=== PATIENT | female | born 1990 | race Hispanic/Latino ===

== ENCOUNTER → 2020-12-23 | Outpatient (REF) | payer SELFPAY | LOC: M WUC 19:44 | PROVIDERS: ATTEND Physician Assistant | DX: R30.0 Dysuria (principal) ==

== ENCOUNTER 2021-06-01 19:53 | Emergency (ER) | payer OTHER, SELFPAY ==
[~2021-06-01] VITALS: Ht 160 cm; Wt 76.2 kg
[2021-06-01] MEDS ORDERED: PREN1CHW6 PO (20:19)
[2021-06-01 23:09] LABS: BASO # 0.1 10^3/uL (0.0-0.2); BASO % 0.8 % (0.0-1.0); EOS # 0.1 10^3/uL (0.0-0.5); EOS % 1.4 % (0.0-3.0); HEMATOCRIT 37.7 % (36.0-47.0); HEMOGLOBIN 13.1 g/dl (12.0-15.5); LYMPH # 2.2 10^3/uL (1.5-5.0); LYMPH % 22.1 % (24.0-44.0); MEAN CORPUSCULAR HEMOGLOBIN 30.2 pg (27.0-33.0); MEAN CORPUSCULAR HGB CONC 34.7 g/dl (32.0-36.5); MEAN CORPUSCULAR VOLUME 86.9 fl (80.0-96.0); MONO # 0.6 10^3/uL (0.0-0.8); MONO % 6.1 % (2.0-8.0); NEUTROPHILS # 6.9 10^3/uL (1.5-8.5); NEUTROPHILS % 69.3 % (36.0-66.0); PLATELET COUNT, AUTOMATED 263 10^3/uL (150-450); RED BLOOD COUNT 4.34 10^6/uL (4.00-5.40)
[2021-06-01 23:40] LABS: APPEARANCE, URINE CLEAR (CLEAR); BACTERIA, URINE AUTO NEGATIVE (NEGATIVE); BILIRUBIN, URINE AUTO NEGATIVE (NEGATIVE); BLOOD, URINE BLOOD NEGATIVE (NEGATIVE); COLOR, URINE YELLOW (YELLOW); GLUCOSE, URINE (UA) AUTO NEGATIVE (NEGATIVE); KETONE, URINE AUTO NEGATIVE (NEGATIVE); LEUKOCYTE ESTERASE, URINE AUTO NEGATIVE (NEGATIVE); MUCUS, URINE SMALL (NEGATIVE); NITRITE, URINE AUTO NEGATIVE (NEGATIVE); PROTEIN, URINE AUTO NEGATIVE (NEGATIVE); RBC, URINE AUTO 0 /HPF (0-3); SPECIFIC GRAVITY URINE AUTO 1.012 (1.002-1.035); SQUAMOUS EPITHELIAL CELL UR AU 1 /HPF (0-6); UROBILINOGEN, URINE AUTO 0.2 mg/dL (0.0-2.0); WBC, URINE AUTO 1 /HPF (0-3)
[2021-06-02 01:03] LABS: GC DNA AMPLIFICATION NEGATIVE (NEGATIVE)
[2021-06-02 01:43] VITALS: BP 141/88
== END 2021-06-02 02:08 | disposition home or self-care (01) ==
LOC: M ED 19:53
DX: O03.4 Incomplete spontaneous abortion without complication (principal); O02.0 Blighted ovum and nonhydatidiform mole; O34.81 Maternal care for other abnormalities of pelvic organs, first trimester; N83.202 Unspecified ovarian cyst, left side; O30.001 Twin pregnancy, unspecified number of placenta and unspecified number of amniotic sacs, first trimester; Z3A.01 Less than 8 weeks gestation of pregnancy

== ENCOUNTER 2021-06-04 12:03 | Day surgery (SDC) | payer OTHER ==
[~2021-06-04] VITALS: Ht 160 cm; Wt 74.8 kg
[~2021-06-04 12:03] MED LIST: LIDOCAINE 1% MDV 20ML VIAL SQ PRN; LIDOCAINE 2% 100MG/5ML SDV (FOR ANES.) As Ordered ONE; LR 1,000 ML IV ONE; MIDAZOLAM INJ 2MG/2ML VIAL (J2250 PER 1MG) As Ordered ONE; ONDANSETRON 4MG/2ML VIAL As Ordered ONE; PREN1CHW6 PO; dexameTHASONE 4 MG/ML 1ML VIAL (J1100 PER 1MG) As Ordered ONE; fentaNYL 100 MCG/2 ML INJECTION As Ordered ONE; propofoL 200 MG/20 ML VIAL As Ordered ONE
[2021-06-04 12:30] LABS: HEMATOCRIT 40.2 % (36.0-47.0); HEMOGLOBIN 13.8 g/dl (12.0-15.5); MEAN CORPUSCULAR HEMOGLOBIN 29.7 pg (27.0-33.0); MEAN CORPUSCULAR HGB CONC 34.3 g/dl (32.0-36.5); MEAN CORPUSCULAR VOLUME 86.5 fl (80.0-96.0); PLATELET COUNT, AUTOMATED 273 10^3/uL (150-450); RED BLOOD COUNT 4.65 10^6/uL (4.00-5.40); WHITE BLOOD COUNT 10.6 10^3/uL (4.0-10.0)
[2021-06-04] MEDS ORDERED: ACETAMINOPHEN 1000MG 100ML IV BTL (OFIRMEV) (J0131 PER 10MG) As Ordered ONE (13:41)
[2021-06-04] MEDS ORDERED: LR 1,000 ML IV SCH ×2 (14:30)
[2021-06-04] MEDS ORDERED: ONDANSETRON 4MG/2ML VIAL IV PRN (14:30)
[2021-06-04] MEDS ORDERED: oxyCODONE 5MG TAB PO PRN (14:30)
[2021-06-04] MEDS ORDERED: fentaNYL 100 MCG/2 ML INJECTION IV PRN (14:30)
[2021-06-04] MEDS ORDERED: MEPERIDINE INJ 25 MG/ML VIAL (J2175) IV PRN (14:30)
[2021-06-04] MEDS ORDERED: ACETAMINOPHEN 500 MG TAB PO ONE ×2 (15:00→20:00)
[2021-06-04] MEDS ORDERED: DOXYCYCLINE HYCLATE 100MG TABLET PO ONE (15:00)
[2021-06-04] MEDS ORDERED: KETOROLAC 30 MG/ML 1ML VIAL IV ONE (15:15)
[2021-06-04 15:45] VITALS: BP 141/92
== END 2021-06-04 15:53 | disposition home or self-care (01) ==
LOC: M SDC 12:03
PROVIDERS: ATTEND Specialist
DX: O02.1 Missed abortion (principal); Z87.891 Personal history of nicotine dependence
CPT/HCPCS: 36415; 59820; 85027; 88305; J0131; J1100; J1885; J2250; J2405; J3010

== ENCOUNTER → 2021-06-24 | Outpatient (REF) | payer OTHER ==
[~2021-06-24] MED LIST changes: -LIDOCAINE 1% MDV 20ML VIAL SQ PRN; -LIDOCAINE 2% 100MG/5ML SDV (FOR ANES.) As Ordered ONE; -LR 1,000 ML IV ONE; -MIDAZOLAM INJ 2MG/2ML VIAL (J2250 PER 1MG) As Ordered ONE; -ONDANSETRON 4MG/2ML VIAL As Ordered ONE; -dexameTHASONE 4 MG/ML 1ML VIAL (J1100 PER 1MG) As Ordered ONE; -fentaNYL 100 MCG/2 ML INJECTION As Ordered ONE; -propofoL 200 MG/20 ML VIAL As Ordered ONE
== END ==
LOC: M LAB REF 12:25
PROVIDERS: ATTEND Physician Assistant Medical
DX: J02.9 Acute pharyngitis, unspecified (principal)

== ENCOUNTER → 2021-07-27 | Outpatient (CLI) | payer OTHER ==
[~2021-07-27] MED LIST changes: +IBUP80TA PO
== END ==
LOC: M LABSMTC 10:11
PROVIDERS: ATTEND Anesthesiology
DX: Z01.812 Encounter for preprocedural laboratory examination (principal); Z11.52 Encounter for screening for COVID-19

== ENCOUNTER 2021-07-31 12:01 | Day surgery (SDC) | payer OTHER ==
[~2021-07-31] VITALS: Ht 157.5 cm; Wt 73.9 kg
[~2021-07-31 12:01] MED LIST changes: +LIDOCAINE 1% MDV 20ML VIAL SQ PRN; +LR 1,000 ML IV ONE
[2021-07-31 12:31] LABS: HEMATOCRIT 42.1 % (36.0-47.0); HEMOGLOBIN 14.5 g/dl (12.0-15.5); MEAN CORPUSCULAR HEMOGLOBIN 29.6 pg (27.0-33.0); MEAN CORPUSCULAR HGB CONC 34.4 g/dl (32.0-36.5); MEAN CORPUSCULAR VOLUME 85.9 fl (80.0-96.0); PLATELET COUNT, AUTOMATED 273 10^3/uL (150-450); WHITE BLOOD COUNT 4.8 10^3/uL (4.0-10.0)
[2021-07-31] MEDS ORDERED: BUPIVACAINE HCL 0.25% 30ML VIAL As Ordered ONE (13:13)
[2021-07-31] MEDS ORDERED: BUPIVACAINE HCL 0.25% 10ML VIAL As Ordered ONE (13:21)
[2021-07-31] MEDS ORDERED: ROCURONIUM BROMIDE 50 MG/5 ML VIAL As Ordered ONE (13:24)
[2021-07-31] MEDS ORDERED: LIDOCAINE 2% 100MG/5ML SDV (FOR ANES.) As Ordered ONE (13:24)
[2021-07-31] MEDS ORDERED: MIDAZOLAM INJ 2MG/2ML VIAL (J2250 PER 1MG) As Ordered ONE (13:24)
[2021-07-31] MEDS ORDERED: propofoL 200 MG/20 ML VIAL As Ordered ONE (13:24)
[2021-07-31] MEDS ORDERED: dexameTHASONE 4 MG/ML 1ML VIAL (J1100 PER 1MG) As Ordered ONE (13:24)
[2021-07-31] MEDS ORDERED: ONDANSETRON 4MG/2ML VIAL As Ordered ONE (13:24)
[2021-07-31] MEDS ORDERED: fentaNYL 100 MCG/2 ML INJECTION As Ordered ONE ×2 (13:24→14:09)
[2021-07-31] MEDS ORDERED: SUGAMMADEX SODIUM 500 MG/5 ML VIAL (BRIDION) As Ordered ONE (13:39)
[2021-07-31] MEDS ORDERED: KETOROLAC 60MG 2ML VIAL As Ordered ONE (13:39)
[2021-07-31] MEDS ORDERED: ACETAMINOPHEN 1000MG 100ML IV BTL (OFIRMEV) (J0131 PER 10MG) As Ordered ONE (13:59)
[2021-07-31] MEDS ORDERED: oxyCODONE 5MG TAB PO PRN (15:10)
[2021-07-31] MEDS ORDERED: ONDANSETRON 4MG/2ML VIAL IV PRN (15:10)
[2021-07-31] MEDS ORDERED: fentaNYL 100 MCG/2 ML INJECTION IV PRN (15:10)
[2021-07-31] MEDS ORDERED: LR 1,000 ML IV SCH ×2 (15:10)
[2021-07-31] MEDS ORDERED: PERCOCET 5MG/325MG TAB PO PRN (15:10)
[2021-07-31] MEDS: HYDROMORPHONE HCL 0.5 MG/ 0.5 ML SYRINGE (J1170 PER 1) IV PRN ×2 (15:30→15:36)
[2021-07-31 16:36] VITALS: BP 159/91
[2021-07-31] MEDS ORDERED: OXYC1TAB23 PO (16:46)
[2021-07-31] MEDS ORDERED: IBUP-1022 PO (16:46)
== END 2021-07-31 16:45 | disposition home or self-care (01) ==
LOC: M SDC 12:01
PROVIDERS: ATTEND Specialist
DX: D39.12 Neoplasm of uncertain behavior of left ovary (principal)
CPT/HCPCS: 36415; 58662; 81025; 85027; 88305; J0131; J1100; J1170; J1885; J2250; J2405; J3010

== ENCOUNTER → 2022-11-16 | Outpatient (REF) | payer OTHER ==
[~2022-11-16] MED LIST changes: +IBUP-1022 PO; -LIDOCAINE 1% MDV 20ML VIAL SQ PRN; -LR 1,000 ML IV ONE; +OXYC1TAB23 PO
[2022-11-16 13:06] LABS: BLOOD UREA NITROGEN 10 MG/DL (9-23); CALCIUM LEVEL 8.7 MG/DL (8.5-10.1); CARBON DIOXIDE LEVEL 27 MMOL/L (20-31); CHLORIDE LEVEL 103 MMOL/L (98-107); CREATININE FOR GFR 1.07 MG/DL (0.55-1.30); GLOMERULAR FILTRATION RATE > 60.0 (>60); GLUCOSE, FASTING 97 MG/DL (60-100); POTASSIUM SERUM 3.6 MMOL/L (3.5-5.1); SODIUM LEVEL 138 MMOL/L (136-145)
== END ==
LOC: M LABWUC 11:52
PROVIDERS: ATTEND Student in an Organized Health Care Education/Training Program
DX: U07.1 COVID-19 (principal)

== ENCOUNTER → 2023-08-25 | Outpatient (CLI) | payer OTHER ==
[2023-08-25 16:34] LABS: FOLLICLE STIMULATING HORMONE 6.2 mIU/ML; FREE T4 1.24 NG/DL (0.89-1.76); PROGESTERONE 0.34 NG/ML
[2023-08-25 16:35] LABS: LUTEINIZING HORMONE 16.4 mIU/ML; PROLACTIN 11.03 NG/ML; THYROID STIMULATING HORMONE 1.457 uIU/ML (0.55-4.78)
== END ==
LOC: M PLALAB 12:16
PROVIDERS: ATTEND Specialist
DX: N92.6 Irregular menstruation, unspecified (principal)

== ENCOUNTER → 2023-11-04 | Outpatient (REF) | payer OTHER | LOC: M SFHCDERM 16:35 | PROVIDERS: ATTEND Nurse Practitioner Family | DX: D49.2 Neoplasm of unspecified behavior of bone, soft tissue, and skin (principal) ==

== ENCOUNTER 2024-01-14 22:43 | Inpatient (IN) | payer MEDICAID, OTHER ==
[~2024-01-14] VITALS: Ht 160 cm; Wt 73.4 kg
[2024-01-14 23:23] LABS: BASO # 0.1 10^3/uL (0.0-0.2); BASO % 1.1 % (0.0-1.0); EOS # 0.1 10^3/uL (0.0-0.5); EOS % 2.1 % (0.0-3.0); HEMATOCRIT 41.4 % (36.0-47.0); HEMOGLOBIN 14.2 g/dl (12.0-15.5); LYMPH # 1.5 10^3/uL (1.5-5.0); LYMPH % 27.2 % (24.0-44.0); MEAN CORPUSCULAR HEMOGLOBIN 30.3 pg (27.0-33.0); MEAN CORPUSCULAR HGB CONC 34.3 g/dl (32.0-36.5); MEAN CORPUSCULAR VOLUME 88.3 fl (80.0-96.0); MONO # 0.4 10^3/uL (0.0-0.8); MONO % 7.2 % (2.0-8.0); NEUTROPHILS # 3.5 10^3/uL (1.5-8.5); NEUTROPHILS % 62.2 % (36.0-66.0); PLATELET COUNT, AUTOMATED 237 10^3/uL (150-450); RED BLOOD COUNT 4.69 10^6/uL (4.00-5.40); WHITE BLOOD COUNT 5.6 10^3/uL (4.0-10.0)
[2024-01-14 23:44] LABS: ETHYL ALCOHOL (ETHANOL) < 0.003 % (0.000-0.010)
[2024-01-14 23:46] LABS: ALBUMIN 4.1 G/DL (3.2-5.2); ALKALINE PHOSPHATASE 65 U/L (46-116); ALT/SGPT 20 U/L (7.0-40); AST/SGOT 18 U/L (<34); BILIRUBIN,DIRECT 0.3 MG/DL (<0.4); BLOOD UREA NITROGEN 11 MG/DL (9-23); CALCIUM LEVEL 9.4 MG/DL (8.5-10.1); CARBON DIOXIDE LEVEL 26 MMOL/L (20-31); CHLORIDE LEVEL 108 MMOL/L (98-107); CREATININE FOR GFR 0.85 MG/DL (0.55-1.30); GLOMERULAR FILTRATION RATE > 60.0 (>60); GLUCOSE, FASTING 106 MG/DL (60-100); SALICYLATE LEVEL < 3.0 MG/DL (<30); SODIUM LEVEL 139 MMOL/L (136-145); TOTAL PROTEIN 7.7 G/DL (5.7-8.2)
[2024-01-14 23:48] LABS: THYROID STIMULATING HORMONE 1.101 uIU/ML (0.55-4.78)
[2024-01-14 23:50] LABS: CPK CREATINE PHOSPHOKINASE 111 U/L (34-145)
[2024-01-15 04:10] LABS: AMPHETAMINES LEVEL URINE NEGATIVE (NEGATIVE); BARBITURATES URINE NEGATIVE (NEGATIVE); BENZODIAZEPINES URINE NEGATIVE (NEGATIVE); COCAINE METABOLITE URINE NEGATIVE (NEGATIVE); METHADONE URINE NEGATIVE (NEGATIVE); OPIATES URINE NEGATIVE (NEGATIVE); PHENCYCLIDINE URINE NEGATIVE (NEGATIVE)
[2024-01-15 04:11] LABS: CANNABINOIDS URINE NEGATIVE (NEGATIVE)
[2024-01-15] MEDS ORDERED: MAALOX 30 ML SUSP *UDC PO PRN (06:40)
[2024-01-15] MEDS ORDERED: IBUPROFEN 400MG TAB PO PRN (06:40)
[2024-01-15] MEDS ORDERED: ACETAMINOPHEN 325 MG TAB PO PRN (06:40)
[2024-01-15] MEDS ORDERED: diphenhydrAMINE 25MG CAP PO PRN (06:40)
[2024-01-15] MEDS ORDERED: traZODone 50 MG TAB PO PRN (06:40)
[2024-01-15] MEDS ORDERED: MOM 30ML SUSPENSION UDC PO PRN (06:40)
[2024-01-15 08:28] VITALS: BP 132/81; TEMP 98.2; O2SAT 100
[2024-01-15] MEDS ORDERED: LOSA50TA28 PO (11:42)
[2024-01-15] MEDS ORDERED: AMLO1TAB24 PO (11:42)
[2024-01-15] MEDS ORDERED: HOME MED LIST COMPLETE! XX SCH (11:45)
[2024-01-16 06:11] VITALS: BP 132/82; TEMP 97.7
[2024-01-16] MEDS: amLODIPine 5 MG TAB PO SCH (09:09)
[2024-01-16 14:45] VITALS: BP 198/95; TEMP 97.7; O2SAT 98
[2024-01-16] MEDS: LOSARTAN 50MG TABLET PO SCH (20:48)
[2024-01-17 06:18] VITALS: BP 133/84; TEMP 98.2; O2SAT 95
[2024-01-17 08:50] VITALS: BP 144/96
== END 2024-01-17 12:15 | disposition home or self-care (01) | DRG 755 ==
LOC: EDBD 22:43 → M ED 22:43 → M ED INP 01-15 06:38 → M PSY 01-15 08:05
PROVIDERS: ADMIT Psychiatry & Neurology Psychiatry; ATTEND Psychiatry & Neurology Psychiatry
DX: F43.25 Adjustment disorder with mixed disturbance of emotions and conduct (principal); I10 Essential (primary) hypertension; R73.9 Hyperglycemia, unspecified; Z63.5 Disruption of family by separation and divorce; Z79.899 Other long term (current) drug therapy

== ENCOUNTER → 2024-12-28 | Outpatient (CLI) | payer OTHER ==
[~2024-12-28] MED LIST changes: +AMLO1TAB24 PO; -IBUP-1022 PO; +IBUP600T42 PO; +LOSA50TA28 PO
[2024-12-28 08:06] LABS: APPEARANCE, URINE CLEAR (CLEAR); BACTERIA, URINE AUTO NEGATIVE (NEGATIVE); BILIRUBIN, URINE AUTO NEGATIVE (NEGATIVE); BLOOD, URINE BLOOD 2+ (NEGATIVE); GLUCOSE, URINE (UA) AUTO NEGATIVE (NEGATIVE); KETONE, URINE AUTO NEGATIVE (NEGATIVE); LEUKOCYTE ESTERASE, URINE AUTO NEGATIVE (NEGATIVE); NITRITE, URINE AUTO NEGATIVE (NEGATIVE); PROTEIN, URINE AUTO NEGATIVE (NEGATIVE); RBC, URINE AUTO 20 /HPF (0-3); SPECIFIC GRAVITY URINE AUTO 1.011 (1.002-1.035); SQUAMOUS EPITHELIAL CELL UR AU 1 /HPF (0-6); UROBILINOGEN, URINE AUTO 0.2 mg/dL (0.0-2.0); WBC, URINE AUTO 1 /HPF (0-3)
[2024-12-28 08:07] LABS: BASO # 0.1 10^3/uL (0.0-0.2); BASO % 1.1 % (0.0-1.0); EOS # 0.1 10^3/uL (0.0-0.5); EOS % 1.4 % (0.0-3.0); LYMPH # 1.8 10^3/uL (1.5-5.0); LYMPH % 31.4 % (24.0-44.0); MONO # 0.4 10^3/uL (0.0-0.8); MONO % 7.2 % (2.0-8.0); NEUTROPHILS # 3.3 10^3/uL (1.5-8.5); NEUTROPHILS % 58.7 % (36.0-66.0); PLATELET COUNT, AUTOMATED 247 10^3/uL (150-450)
[2024-12-28 08:33] LABS: ALT/SGPT 14.0 U/L (7.0-40); AST/SGOT 16.0 U/L (<34); CALCIUM LEVEL 9.3 MG/DL (8.5-10.1); CARBON DIOXIDE LEVEL 26.0 MMOL/L (20-31); CHLORIDE LEVEL 105.0 MMOL/L (98-107); CHOLESTEROL LEVEL 165.0 MG/DL (<200); CHOLESTEROL RISK RATIO 3.98 (<5); CREATININE FOR GFR 1.13 MG/DL (0.55-1.30); GLOMERULAR FILTRATION RATE 65.5 (>60); LDL CHOLESTEROL 109.0 MG/DL (<100); NON-HDL-C 123.6 MG/DL; POTASSIUM SERUM 4.3 MMOL/L (3.5-5.1); SODIUM LEVEL 139.0 MMOL/L (136-145); TRIGLYCERIDES LEVEL 73.0 MG/DL (<150)
[2024-12-28 08:35] LABS: FREE T4 1.17 NG/DL (0.89-1.76)
== END ==
LOC: M LAB 06:34
PROVIDERS: ATTEND Physician Assistant
DX: I10 Essential (primary) hypertension (principal); E78.5 Hyperlipidemia, unspecified

== ENCOUNTER 2025-02-11 12:26 | Emergency (ER) | payer OTHER ==
[~2025-02-11] VITALS: Ht 157.5 cm; Wt 70.2 kg
[2025-02-11] MEDS ORDERED: LABE100T6 (12:35)
[2025-02-11] MEDS ORDERED: METF500T13 (12:35)
[2025-02-11 15:23] VITALS: BP 148/92; TEMP 98.1; O2SAT 99
== END 2025-02-11 15:24 | disposition home or self-care (01) ==
LOC: M ED 12:26
DX: J06.9 Acute upper respiratory infection, unspecified (principal)